=== PATIENT | female | born 1945 ===

== ENCOUNTER 2018-05-13 08:27 | Day surgery (SDC) | payer MEDICARE, OTHER ==
[~2018-05-13] VITALS: Ht 157.5 cm; Wt 55.9 kg
[~2018-05-13 08:27] MED LIST: ALBU90OI61; CITA20; CRUTCH3 USE; CYAN1000I; Flonase 0.05% N16 GM; HYDACE5 PO; LISI5 PO; LOSA25; NAPR500 PO; ROSU10TA PO; VENL75ER PO; Vistaril25 MG
== END 2018-05-13 10:32 | disposition home or self-care (01) ==
LOC: ORSCSDS 08:27
PROVIDERS: Internal Medicine Gastroenterology
PROC: 0DBE8ZX Excision of Large Intestine, Via Natural or Artificial Opening Endoscopic, Diagnostic (ICD-10-PCS; principal; 2018-05-13 09:30)
PROC: 0DBL8ZX Excision of Transverse Colon, Via Natural or Artificial Opening Endoscopic, Diagnostic (ICD-10-PCS; principal; 2018-05-13 09:30)
PROC: 0DBN8ZX Excision of Sigmoid Colon, Via Natural or Artificial Opening Endoscopic, Diagnostic (ICD-10-PCS; principal; 2018-05-13 09:30)
DX: K62.5 Hemorrhage of anus and rectum (principal); K52.831 Collagenous colitis; D12.5 Benign neoplasm of sigmoid colon; K64.4 Residual hemorrhoidal skin tags; K64.8 Other hemorrhoids; K57.30 Diverticulosis of large intestine without perforation or abscess without bleeding; R19.7 Diarrhea, unspecified; R10.84 Generalized abdominal pain; I10 Essential (primary) hypertension; E78.00 Pure hypercholesterolemia, unspecified; F41.9 Anxiety disorder, unspecified; F17.210 Nicotine dependence, cigarettes, uncomplicated; Z79.899 Other long term (current) drug therapy
CPT/HCPCS: 88305; 88313; J0330; J1980; J2405; J7120

== ENCOUNTER 2018-05-21 11:44 | Day surgery (SDC) | payer MEDICARE, OTHER ==
[~2018-05-21] VITALS: Ht 157.5 cm; Wt 56.9 kg
== END 2018-05-21 14:00 | disposition home or self-care (01) ==
LOC: ORSCSDS 11:44
PROVIDERS: Internal Medicine Gastroenterology
PROC: 0DJ08ZZ Inspection of Upper Intestinal Tract, Via Natural or Artificial Opening Endoscopic (ICD-10-PCS; principal; 2018-05-21 13:00)
DX: R11.0 Nausea (principal); R19.7 Diarrhea, unspecified; I10 Essential (primary) hypertension; E78.00 Pure hypercholesterolemia, unspecified; F41.9 Anxiety disorder, unspecified; E78.5 Hyperlipidemia, unspecified; K62.5 Hemorrhage of anus and rectum; F17.210 Nicotine dependence, cigarettes, uncomplicated; Z79.899 Other long term (current) drug therapy

== ENCOUNTER 2018-12-20 14:23 | Emergency (ER) | payer MEDICARE, OTHER ==
[~2018-12-20] VITALS: Ht 157.5 cm; Wt 58.5 kg
[~2018-12-20 14:23] MED LIST changes: +LOSA50 PO
[2018-12-20 15:10] LABS: BASOPHILS ABSOLUTE AUTO 0.07 K/mm3 (0.00-0.23); BASOPHILS PERCENT AUTO 1 % (0-2); EOSINOPHILS ABSOLUTE AUTO 0.16 K/mm3 (0.00-0.68); EOSINOPHILS PERCENT AUTO 2 % (0-6); Hematocrit 46.2 % (33.0-51.0); IMMATURE GRAN ABSOLUTE AUTO 0.04 K/mm3 (0.00-0.10); IMMATURE GRAN PERCENT AUTO 1 % (0-1); LYMPHOCYTES ABSOLUTE AUTO 0.82 K/mm3 (0.84-5.20); LYMPHOCYTES PERCENT AUTO 9 % (21-46); MONOCYTES ABSOLUTE AUTO 0.82 K/mm3 (0.16-1.47); MONOCYTES PERCENT AUTO 9 % (4-13); Mean Corpuscular HGB 36.4 pg (26.0-34.0); Mean Corpuscular HGB Conc 34.6 g/dL (31.5-36.5); Mean Corpuscular Volume 105 fL (80-100); Mean Platelet Volume 10.6 fL (9.1-12.4); NEUTROPHILS PERCENT AUTO 78 % (41-73); Platelet Count 212 K/mm3 (150-400); RDW Coefficient Variation 13.2 % (11.7-14.2); White Blood Cell Count 8.81 K/mm3 (4.00-11.30)
[2018-12-20 15:44] LABS: Alanine Aminotransfer (ALT/SGP 41 U/L (12-78); Albumin, Blood 3.4 g/dL (3.4-5.0); Albumin/Globulin Ratio 0.8 (0.8-1.8); Alk Phos 96 U/L (50-136); Anion Gap 10 mmol/L (6-16); Aspartate Aminotrans (AST/SGOT 100 U/L (12-37); Bilirubin, Total 0.8 mg/dL (0.1-1.0); Blood Urea Nitrogen 10 mg/dL (8-24); Bun/Creatinine Ratio 15.8 (12.0-20.0); CO2, Blood 24 mmol/L (21-32); Chloride, Blood 100 mmol/L (98-108); Creatinine, Blood 0.63 mg/dL (0.40-1.00); Globulin, Blood 4.3 g/dL (2.2-4.0); Glomerular Filtration Rate >60 (60-); Glucose, Blood 137 mg/dL (70-99); Potassium, Blood 4.4 mmol/L (3.5-5.5); Sodium, Blood 134 mmol/L (136-145); Total Protein, Blood 7.7 g/dL (6.4-8.2)
[2018-12-20] MEDS ORDERED: VENL25 PO (17:32)
== END 2018-12-20 18:16 | disposition home or self-care (01) ==
LOC: ER 14:23
PROVIDERS: Physician Assistant
DX: R42 Dizziness and giddiness (principal); R74.0 Nonspecific elevation of levels of transaminase and lactic acid dehydrogenase [LDH]; I10 Essential (primary) hypertension; E78.00 Pure hypercholesterolemia, unspecified; F17.200 Nicotine dependence, unspecified, uncomplicated; Z79.899 Other long term (current) drug therapy
CPT/HCPCS: 36415; 71046; 80053; 84484; 85025; 93005; 93010; 99284-25

== ENCOUNTER 2019-01-10 06:32 | Day surgery (SDC) | payer MEDICARE, OTHER ==
[~2019-01-10] VITALS: Ht 157.5 cm; Wt 58.9 kg
[~2019-01-10 06:32] MED LIST changes: +ALBU90OI61 INH; +CYAN1000I IM; +HYDPAM25 PO; +Norco 5-325 Ta1 EACH PO; +VENL25 PO
--- NOTE | 2019-01-10 07:08 | NUR ---
01/10/19 0708 Peterson Modi 1ST IV ATTEMPT IN RT HAND UNSUCCESSFUL, CHER 2ND IV ATTEMPT IN RAC SUCCESSFUL, CHER
== END 2019-01-10 09:14 | disposition home or self-care (01) ==
LOC: ORSCSDS 06:32
PROVIDERS: Surgery
PROC: 0WB80ZX Excision of Chest Wall, Open Approach, Diagnostic (ICD-10-PCS; principal; 2019-01-10 07:30)
DX: C7B.8 Other secondary neuroendocrine tumors (principal); I10 Essential (primary) hypertension; E78.00 Pure hypercholesterolemia, unspecified; R73.9 Hyperglycemia, unspecified; F17.210 Nicotine dependence, cigarettes, uncomplicated; Z79.899 Other long term (current) drug therapy
CPT/HCPCS: 88305; 88341; 88342; J1100; J2001; J2250; J2370; J2405; J2704; J3010

== ENCOUNTER 2019-01-21 07:25 | Day surgery (SDC) | payer MEDICARE, OTHER ==
[~2019-01-21] VITALS: Ht 154.9 cm; Wt 59.0 kg
--- NOTE | 2019-01-21 08:10 | NUR ---
Ambulatory in Day Surgery History, Chart, Medications and Allergies reviewed before start of procedure.Patient confirms NPO status and agrees with scheduled surgery. Patient States Post-Procedure ride home has been arranged. INSPIRATORY WHEEZE.
--- NOTE | 2019-01-21 08:11 | NUR ---
CARE TURNED OVER TO Bowen ANDREA
--- NOTE | 2019-01-21 08:25 | NUR ---
PATIENT GAVE PERMISION FOR ME TO CARE FOR HER TODAY 01/21/19. History, Chart, Medications and Allergies reviewed before start of procedure.Patient confirms NPO status and agrees with scheduled surgery. Patient reports completing Chlorhexadine shower X2 prior to admission to hospital.Surgical site prepped with 2% Chlorhexidine cloth wipe. AUDIBLE WHEEZES THROUGHOUT INSPIRATORY AND EXPIRATORY.
--- NOTE | 2019-01-21 08:27 | NUR ---
STUDENT RN ASSISTING WITH PREOPERATIVE CARE WHILE GIVING RN BREAK. AGREE WITH HER CHARTING AND CARE
--- NOTE | 2019-01-21 11:52 | NUR ---
"DAY SURGERY RN | DISCHARGE VSS. A/O. Incentive spirometer given to patient. Discharge instructions given to patient. Family is ride home. Sites remain c/d/i. RX given to family. No issues. Tolerating PO fluids and crackers. Denies pain and nausea. Taken to front entrance by volunteer in wheelchair."
== END 2019-01-21 23:09 | disposition home or self-care (01) ==
LOC: ORSCMMR 07:25 → ORD 08:45 → ORSCMMR 08:45
PROVIDERS: Surgery
PROC: B5131ZA Fluoroscopy of Right Jugular Veins using Low Osmolar Contrast, Guidance (ICD-10-PCS; principal; 2019-01-21 08:45)
PROC: 05HM33Z Insertion of Infusion Device into Right Internal Jugular Vein, Percutaneous Approach (ICD-10-PCS; principal; 2019-01-21 08:45)
DX: C38.1 Malignant neoplasm of anterior mediastinum (principal); C34.90 Malignant neoplasm of unspecified part of unspecified bronchus or lung; C79.81 Secondary malignant neoplasm of breast; C79.2 Secondary malignant neoplasm of skin; I10 Essential (primary) hypertension; J44.9 Chronic obstructive pulmonary disease, unspecified; F17.210 Nicotine dependence, cigarettes, uncomplicated; Z79.899 Other long term (current) drug therapy
CPT/HCPCS: 77001; C1788; C1894; J0690; J1100; J1642; J1885; J2250; J2405; J2704; J3010; J7120

== ENCOUNTER 2019-01-27 11:28 | Emergency (ER) | payer MEDICARE, OTHER ==
[~2019-01-27] VITALS: Ht 154.9 cm; Wt 63.5 kg
[2019-01-27 12:20] LABS: BASOPHILS PERCENT AUTO 0 % (0-2); EOSINOPHILS PERCENT AUTO 0 % (0-6); Hematocrit 37.2 % (33.0-51.0); IMMATURE GRAN ABSOLUTE AUTO 0.05 K/mm3 (0.00-0.10); IMMATURE GRAN PERCENT AUTO 1 % (0-1); LYMPHOCYTES ABSOLUTE AUTO 0.64 K/mm3 (0.84-5.20); LYMPHOCYTES PERCENT AUTO 7 % (21-46); MONOCYTES ABSOLUTE AUTO 0.28 K/mm3 (0.16-1.47); MONOCYTES PERCENT AUTO 3 % (4-13); Mean Corpuscular HGB 36.6 pg (26.0-34.0); Mean Corpuscular HGB Conc 34.9 g/dL (31.5-36.5); Mean Corpuscular Volume 105 fL (80-100); NEUTROPHILS PERCENT AUTO 90 % (41-73); Platelet Count 232 K/mm3 (150-400); RDW Coefficient Variation 13.3 % (11.7-14.2); RDW Standard Deviation 51.6 fL (35.1-46.3); Red Blood Cell Count 3.55 M/mm3 (3.80-5.20); White Blood Cell Count 9.77 K/mm3 (4.00-11.30)
[2019-01-27 12:33] LABS: Alanine Aminotransfer (ALT/SGP 27 U/L (12-78); Albumin, Blood 3.3 g/dL (3.4-5.0); Albumin/Globulin Ratio 0.8 (0.8-1.8); Alk Phos 93 U/L (50-136); Anion Gap 6 mmol/L (6-16); Aspartate Aminotrans (AST/SGOT 36 U/L (12-37); Blood Urea Nitrogen 12 mg/dL (8-24); CO2, Blood 31 mmol/L (21-32); Calcium, Blood 9.2 mg/dL (8.5-10.1); Chloride, Blood 97 mmol/L (98-108); Creatinine, Blood 0.52 mg/dL (0.40-1.00); Glomerular Filtration Rate >60 (60-); Glucose, Blood 83 mg/dL (70-99); Potassium, Blood 4.3 mmol/L (3.5-5.5); Sodium, Blood 134 mmol/L (136-145); Total Protein, Blood 7.3 g/dL (6.4-8.2); Troponin I 0.023 ng/mL (0.000-0.040)
[2019-01-27] MEDS ORDERED: ALBU90OI INH (16:32)
== END 2019-01-27 16:53 | disposition home or self-care (01) ==
LOC: ER 11:28
PROVIDERS: Emergency Medicine
DX: S86.812A Strain of other muscle(s) and tendon(s) at lower leg level, left leg, initial encounter (principal); R06.00 Dyspnea, unspecified; X58.XXXA Exposure to other specified factors, initial encounter; Z79.899 Other long term (current) drug therapy; I10 Essential (primary) hypertension; C34.90 Malignant neoplasm of unspecified part of unspecified bronchus or lung; F17.200 Nicotine dependence, unspecified, uncomplicated
CPT/HCPCS: 36415; 71260; 80053; 83880; 84484; 85025; 93005; 93010; 93970; 96374-59; 99285-25; J3010; Q9967

== ENCOUNTER 2019-02-17 11:11 | Inpatient (IN) | payer MEDICARE, OTHER ==
[~2019-02-17] VITALS: Ht 154.9 cm; Wt 63.5 kg
[~2019-02-17 11:11] MED LIST changes: +ALBU90OI INH
[2019-02-17] MEDS ORDERED: VENL75ER PO (11:42)
[2019-02-17 12:01] LABS: BASOPHILS ABSOLUTE AUTO 0.01 K/mm3 (0.00-0.23); BASOPHILS PERCENT AUTO 0 % (0-2); EOSINOPHILS PERCENT AUTO 0 % (0-6); Hematocrit 22.3 % (33.0-51.0); Hemoglobin 7.6 g/dL (11.5-16.0); IMMATURE GRAN PERCENT AUTO 1 % (0-1); LYMPHOCYTES ABSOLUTE AUTO 0.18 K/mm3 (0.84-5.20); LYMPHOCYTES PERCENT AUTO 2 % (21-46); MONOCYTES ABSOLUTE AUTO 0.19 K/mm3 (0.16-1.47); MONOCYTES PERCENT AUTO 2 % (4-13); Mean Corpuscular HGB 37.3 pg (26.0-34.0); Mean Corpuscular HGB Conc 34.1 g/dL (31.5-36.5); Mean Platelet Volume 10.5 fL (9.1-12.4); NEUTROPHILS ABSOLUTE AUTO 7.87 K/mm3 (1.96-9.15); NEUTROPHILS PERCENT AUTO 94 % (41-73); Platelet Count 328 K/mm3 (150-400); RDW Coefficient Variation 14.8 % (11.7-14.2); RDW Standard Deviation 53.9 fL (35.1-46.3); Red Blood Cell Count 2.04 M/mm3 (3.80-5.20); White Blood Cell Count 8.35 K/mm3 (4.00-11.30)
[2019-02-17 12:09] LABS: Mean Corpuscular Volume 109 fL (80-100)
[2019-02-17 12:20] LABS: Alanine Aminotransfer (ALT/SGP 38 U/L (12-78); Albumin, Blood 2.9 g/dL (3.4-5.0); Albumin/Globulin Ratio 0.9 (0.8-1.8); Alk Phos 347 U/L (50-136); Anion Gap 10 mmol/L (6-16); Aspartate Aminotrans (AST/SGOT 47 U/L (12-37); Bilirubin, Total 1.4 mg/dL (0.1-1.0); Blood Urea Nitrogen 12 mg/dL (8-24); Bun/Creatinine Ratio 24.9 (12.0-20.0); CO2, Blood 27 mmol/L (21-32); Calcium, Blood 8.1 mg/dL (8.5-10.1); Chloride, Blood 96 mmol/L (98-108); Creatinine, Blood 0.48 mg/dL (0.40-1.00); Globulin, Blood 3.3 g/dL (2.2-4.0); Glomerular Filtration Rate >60 (60-); Glucose, Blood 172 mg/dL (70-99); Potassium, Blood 3.6 mmol/L (3.5-5.5); Sodium, Blood 133 mmol/L (136-145); Total Protein, Blood 6.2 g/dL (6.4-8.2); Troponin I 0.124 ng/mL (0.000-0.040)
[2019-02-17] MEDS ORDERED: CLON.1 PO (15:09)
[2019-02-17] MEDS ORDERED: ONDA8 PO (15:11)
[2019-02-17] MEDS ORDERED: METO10 PO (15:11)
[2019-02-17 18:19] LABS: Percent Saturation 105.1 % (15.0-50.0)
[2019-02-17 20:16] LABS: Troponin I 0.085 ng/mL (0.000-0.040)
[2019-02-17 20:18] LABS: Thyroid Stimulating Hormone 1.57 uIU/mL (0.360-4.800)
[2019-02-17 20:59] LABS: Source, Urine Catheter
[2019-02-17 21:00] LABS: Bilirubin, Urine Neg (Neg); Blood, Urine 1+ (Neg); Glucose Qualitative, Urine 2+ (Neg); Ketones, Urine Neg (Neg); Leukocyte Esterase, Urine Neg (Neg); Nitrite, Urine Neg (Neg); Protein, Urine 3+ (Neg); Urobilinogen, Urine NORM (Normal)
[2019-02-17 21:05] LABS: Appearance, Urine Hazy (Clear); Color, Urine Yellow (P-Yellow)
[2019-02-17 21:06] LABS: Red Blood Cells, Urine 0-2 /hpf (0-2); Squamous Epithelial Cells Mod /hpf (Few)
[2019-02-17 21:07] LABS: Amorphous Light (0-Heavy); Bacteria Mod /hpf; Granular Casts 0-2 /lpf (0)
--- NOTE | 2019-02-17 23:59 | NUR ---
ADMIT NOTED: PT BROUGHT TO ICU ROOM 14 VIA GURNEY FROM THE ER. PT ARRIVED A+O, VSS, ON OXYGEN 6L VIA N/C SATS 100%. PT LS AT THAT TIME WITH INS AND EXP WHEEZE TO LEFT UPPER, MIDDLE, AND LOWER LOBE. RIGHT LS SLIGHTLY COARSE AND DIMINISHED. PT DENIED SOB, CP, OR ANY OTHER DISCOMFORTS. PT WITH INFUSION OF FIRST UNIT OF PRBC WHICH WAS STARTED IN THE ER. PT STATED THAT BILATERAL LOWER EXT EDEMA BEGAN APPRX TWO WEEKS AGO AND WORSENED. PT WITH MEDIPORT TO RIGHT CHEST AND STATED THAT DR. VARELA DID NOT WANT IT ACCESSED FOR ANYTHING OTHER THAN CHEMO. PT WITH 20g TO R AC AND 20g TO L FA. PT REQUESTED THAT HER [id number] TO BEDSIDE. PT'S [id number] NATY BROUGHT INTO ROOM AND WAS LATER JOINED BY OTHER FAMILY MEMBERS. PT VISITED AND THEN HAD FALLEN ASLEEP WITH SATS 100%. O2 TURNED OFF THIS NOC AT 2355. WITH PT RESTING QUIETLY WITH NO WORK OF BREATHING. WILL CONTINUE TO MONITOR. PT CURRENTLY RECEIVING SECOND UNIT OF PRBC. VSS. PT SKIN PWD. CALL LIGHT WITHIN REACH. NO FAMILY NOTED IN ROOM AT THIS TIME.
--- NOTE | 2019-02-18 01:25 | NUR ---
O2 2L N/C: AT APPRX. 0020. PT SATS 88% WHILE OFF O2. PT WAS ASLEEP, SATS 88%. O2 PLACED ON 2L VIA N/C.
--- NOTE | 2019-02-18 01:26 | NUR ---
PT AWAKE. C/O RESTLESS LEG. PT REQUESTED NORCO AND JELLO. PT DENIED SOB OR ANY OTHER DISCOMFORTS. PT STATED WHILE POINTING TO HER CHEST, "IT FEELS PET GROOMER". CALL LIGHT WITHIN REACH. VSS.
--- NOTE | 2019-02-18 04:30 | NUR ---
PT AWAKE AFTER LAB DRAW. NOW HAS FAMILY AT BEDSIDE. VSS. PT WITH COMPLAINTS AND NO REQUESTS. CALL LIGHT WITHIN REACH.
[2019-02-18 04:40] LABS: BASOPHILS PERCENT AUTO 0 % (0-2); EOSINOPHILS ABSOLUTE AUTO 0.01 K/mm3 (0.00-0.68); EOSINOPHILS PERCENT AUTO 0 % (0-6); Hematocrit 30.2 % (33.0-51.0); Hemoglobin 10.5 g/dL (11.5-16.0); Mean Corpuscular HGB 33.7 pg (26.0-34.0); Mean Corpuscular HGB Conc 34.8 g/dL (31.5-36.5); Mean Platelet Volume 10.4 fL (9.1-12.4); Platelet Count 255 K/mm3 (150-400); RDW Coefficient Variation 18.7 % (11.7-14.2); RDW Standard Deviation 63.2 fL (35.1-46.3); Red Blood Cell Count 3.12 M/mm3 (3.80-5.20); White Blood Cell Count 6.94 K/mm3 (4.00-11.30)
[2019-02-18 04:41] LABS: IMMATURE GRAN ABSOLUTE AUTO 0.07 K/mm3 (0.00-0.10); IMMATURE GRAN PERCENT AUTO 1 % (0-1); LYMPHOCYTES ABSOLUTE AUTO 0.08 K/mm3 (0.84-5.20); LYMPHOCYTES PERCENT AUTO 1 % (21-46); MONOCYTES ABSOLUTE AUTO 0.04 K/mm3 (0.16-1.47); MONOCYTES PERCENT AUTO 1 % (4-13); Mean Corpuscular Volume 97 fL (80-100); NEUTROPHILS ABSOLUTE AUTO 6.74 K/mm3 (1.96-9.15); NEUTROPHILS PERCENT AUTO 97 % (41-73)
[2019-02-18 05:10] LABS: Alanine Aminotransfer (ALT/SGP 41 U/L (12-78); Albumin, Blood 2.9 g/dL (3.4-5.0); Albumin/Globulin Ratio 0.9 (0.8-1.8); Alk Phos 343 U/L (50-136); Anion Gap 7 mmol/L (6-16); Aspartate Aminotrans (AST/SGOT 47 U/L (12-37); Bilirubin, Total 2.6 mg/dL (0.1-1.0); Blood Urea Nitrogen 15 mg/dL (8-24); Bun/Creatinine Ratio 30.9 (12.0-20.0); CO2, Blood 31 mmol/L (21-32); Calcium, Blood 8.4 mg/dL (8.5-10.1); Chloride, Blood 95 mmol/L (98-108); Creatinine, Blood 0.49 mg/dL (0.40-1.00); Globulin, Blood 3.2 g/dL (2.2-4.0); Glomerular Filtration Rate >60 (60-); Glucose, Blood 252 mg/dL (70-99); Magnesium, Blood 1.8 mg/dL (1.6-2.4); Potassium, Blood 3.6 mmol/L (3.5-5.5); Sodium, Blood 133 mmol/L (136-145); Total Protein, Blood 6.1 g/dL (6.4-8.2)
--- NOTE | 2019-02-18 07:30 | NUR ---
ASSUMED CARE OF PATIENT; SEE ASSESSMENT CHARTING FOR DETAILS. PATIENT AWAKE, ALERT AND ORIENTED; DENIES ACUTE DISCOMFORT. RESP. STATUS REMAINS WITH COARSE TO WHEEZY UPPER AIRWAYS AND DIMINISHED BASES; OXYGEN AT 2L/MIN VIA NC. MONITOR AND VSS STABLE. VAZQUEZ TO GRAVITY AND DRAINING MOD. AMOUNTS OF MARILUZ COLORED URINE. 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 HERE AND DOING PORTABLE U/S OF LIVER.
--- NOTE | 2019-02-18 07:50 | NUR ---
RESP. TX. HERE; UDN GIVEN; LUNGS WITH INCREASED ANTERIOR WHEEZES.
--- NOTE | 2019-02-18 08:00 | NUR ---
LIMITED ECHOCARDIOGRAM DONE, AT THIS TIME; HAD A COMPLETE ECHO 2 WEEKS AGO.
--- NOTE | 2019-02-18 08:20 | NUR ---
DR. DEL TORO HERE; DISCUSSED OVERALL STATUS AND POC WITH PATIENT AND DNL. PLANS TO ORDER A CT OF CHEST TO SEE HOW CHEMOTHERAPY IS WORKING AGAINST TUMORS.
--- NOTE | 2019-02-18 08:35 | NUR ---
DR. ALVES HERE; SEE ORDERS.
--- NOTE | 2019-02-18 09:10 | NUR ---
PARTIAL ECHOCARDIOGRAM COMPLETED
--- NOTE | 2019-02-18 14:00 | NUR ---
RN EMPTIED 2,150 ML OF ORANGISH/MARILUZ URINE FROM VAZQUEZ CATH. DRAINAGE BAG.
--- NOTE | 2019-02-18 16:30 | NUR ---
TO CT SCAN VIA BED WITH OXYGEN AT 2L/MIN AND RESEARCH AND DEVELOPMENT DIRECTOR/BIOX MONITOR RUNNING. SCAN PERFORMED WITHOUT INCIDENT; RETURNED TO ROOM AT 1655.
--- NOTE | 2019-02-18 18:30 | NUR ---
SUMMARY: NO ACUTE CHANGES; VSS AND MONITOR ST WITH RATE LOW 100'S TO 120'S; AFEBRILE. BP STABLE TO MODERATELY ELEVATED; DENIES C/O H.A. MEDICATED, X 1, FOR C/O LOWER BACK PAIN OF 5/10; DRIFTED OFF TO SLEEP SHORTLY AFTER MED GIVEN. DIURESED ANOTHER 1100ML SINCE 1400; RECEIVED ANOTHER 60MG OF LASIX IV AT 1800. FAMILY AND FRIENDS IN/OUT; VERY SUPPORTIVE. IF H&H MAINTAINS STABLE TOMORROW THERE IS A CHANCE PATIENT MAY BE DISCHARGED TO HOME; IF H&H WITH SIGNIFICANT DROP DR. DEL TORO IS PLANNING TO ORDER GI CONSULT. WILL REPORT TO ONCOMING RN.
--- NOTE | 2019-02-18 19:00 | NUR ---
ASSUMED CARE ASSUMED CARE OF PATIENT. AWAKE AND ALERT. WATCHING TV. ORIENTED X 3. REPOSITIONS SELF IN BED. DENIES C/O PAIN AT THIS TIME. PT C/O OF GENERAL WEAKNESS. MONITOR SHOWS ST, RATE 100-110s. SBP 160. REMAINS ON 2L NC. RESPIRATIONS EVEN AND UNLABORED. DENIES C/O SOB/DYSPNEA AT THIS TIME. DENIES NAUSEA. TOLERATING DIET BUT DOES HAVE DECREASED APPETITE. VAZQUEZ PATENT AND DRAINING TO GRAVITY. PAS TO BLE. SEE SHIFT ASSESSMENT FOR FULL ASSESSMENT.
--- NOTE | 2019-02-19 02:06 | NUR ---
HYPERTENSION BP 165/91- MEDICATED WITH CLONIDINE 0.1MG PO AT THIS TIME TO KEEP SBP <160. PT DENIES C/O PAIN AT THIS TIME. C/O GENERAL DISCOMFORT- PT REPOSITIONED FOR COMFORT. O2 @ 1L NC. RESPIRATIONS EVEN AND UNLABORED.
[2019-02-19 05:01] LABS: Hematocrit 29.5 % (33.0-51.0); Hemoglobin 10.5 g/dL (11.5-16.0); Mean Corpuscular HGB 34.9 pg (26.0-34.0); Mean Corpuscular HGB Conc 35.6 g/dL (31.5-36.5); Mean Corpuscular Volume 98 fL (80-100); Mean Platelet Volume 10.7 fL (9.1-12.4); Platelet Count 232 K/mm3 (150-400); RDW Standard Deviation 61.1 fL (35.1-46.3); Red Blood Cell Count 3.01 M/mm3 (3.80-5.20); White Blood Cell Count 18.51 K/mm3 (4.00-11.30)
[2019-02-19 05:41] LABS: BAND PERCENT MAN 2 % (0-8); BASOPHILS PERCENT MAN 0 % (0-2); EOSINOPHILS PERCENT MAN 0 % (0-6); METAMYELOCYTE ABSOLUTE MAN 0.18 K/mm3 (0.00-0.00); METAMYELOCYTE PERCENT MAN 1 % (0-0); MONOCYTES PERCENT MAN 0 % (4-13); MYELOCYTE ABSOLUTE MAN 0.18 K/mm3 (0.00-0.00); MYELOCYTE PERCENT MAN 1 % (0-0); NEUTROPHILS ABSOLUTE MAN 18.13 K/mm3 (1.96-9.15); SEG NEUTROPHILS PERCENT MAN 96 % (41-73); TOTAL CELLS COUNTED 100
[2019-02-19 05:53] LABS: Alanine Aminotransfer (ALT/SGP 38 U/L (12-78); Albumin, Blood 2.9 g/dL (3.4-5.0); Albumin/Globulin Ratio 0.9 (0.8-1.8); Alk Phos 327 U/L (50-136); Anion Gap 6 mmol/L (6-16); Aspartate Aminotrans (AST/SGOT 29 U/L (12-37); Bilirubin, Direct 0.8 mg/dL (0.0-0.3); Bilirubin, Indirect 0.7 mg/dL (0.1-0.7); Bilirubin, Total 1.5 mg/dL (0.1-1.0); Blood Urea Nitrogen 20 mg/dL (8-24); Bun/Creatinine Ratio 36.6 (12.0-20.0); CO2, Blood 38 mmol/L (21-32); Calcium, Blood 8.6 mg/dL (8.5-10.1); Chloride, Blood 91 mmol/L (98-108); Creatinine, Blood 0.55 mg/dL (0.40-1.00); Globulin, Blood 3.3 g/dL (2.2-4.0); Glomerular Filtration Rate >60 (60-); Glucose, Blood 239 mg/dL (70-99); Phosphorus, Blood 3.4 mg/dL (2.5-4.9); Potassium, Blood 3.3 mmol/L (3.5-5.5); Sodium, Blood 135 mmol/L (136-145); Total Protein, Blood 6.2 g/dL (6.4-8.2)
--- NOTE | 2019-02-19 06:32 | NUR ---
SHIFT SUMMARY NO ACUTE CHANGES. SLEPT INTERMITTENTLY WHEN UNDISTURBED. CONTINUES TO REPOSITION SELF IN BED FOR COMFORT. MONITOR SHOWS NSR-ST T/O SHIFT, RATE 90-110s. AFEBRILE. SBP 140-160s. REMAINS ON 1L NC. DENIES C/O SOB OR DYSPNEA. MEDICATED WITH NORCO 5/325MG PO X 1 FOR C/O 6/10 BACK PAIN. VAZQUEZ PATENT AND DRAINING DARK YELLOW URINE. WILL REPORT TO DAY SHIFT RN WHEN AVAILABLE.
--- NOTE | 2019-02-19 07:30 | NUR ---
ASSUMED CARE OF PATIENT; SEE ASSESSMENT CHARTING FOR DETAILS. PATIENT SLEEPING BUT ROUSED TO SOFT, VERBAL STIMULI. ORIENTED X3 AND COOPERATIVE. DENIES UNDUE DISCOMFORT AT THIS TIME. CONT. WITH 2-3+ BILAT. LE EDEMA; LESS SEVERE FROM YESTERDAY; REMAINS PITTING. SBP MODERATELY ELEVATED (150'S TO 160'S); HR 90'S TO 120/MIN. LOW GRADE FEVER OF 99.1; WBC UP TO 18,000 THIS AM; CONT. TO RECEIVE GRANIX SUBQ ORDERED BY BY DR. DEL TORO; STARTED YESTERDAY AND IS ORDERED DAILY. VAZQUEZ TO GRAVITY AND DRAINING MOD. AMOUNTS OF STRAW COLORED URINE. STATES SHE IS PASSING GAS; FEELS LIKE SHE WILL HAVE A STOOL TODAY.
--- NOTE | 2019-02-19 08:05 | NUR ---
RN T/C DR. HAM (CARDIOLOGY) FOR CONSULT; HE WILL CHECK OVER PATIENTS' CHART AND ECHOCARDIOGRAM AND THEN EVAL. PATIENT.
--- NOTE | 2019-02-19 08:25 | NUR ---
DR. HAM ARRIVED; SPOKE WITH PATIENT AND DISCUSSED CARDIAC STATUS; NO ACUTE CARDIAC ISSUES; FEELS ANEMIA CAUSED CHF EPISODE AND PATIENT MAY REQUIRE SMALL DOSES OF DIURETIC WHEN GOES HOME; ALSO STARTED NORVASC 2.5MG FOR MODERATE HTN.
--- NOTE | 2019-02-19 11:05 | NUR ---
REPORT TO CORA CERDA RN; PATIENT TO TRANSFER TO PCU, ROOM 2.
--- NOTE | 2019-02-19 11:25 | NUR ---
TRANSFERRED TO PCU, VIA BED; BELONGINGS, CHART AND MEDS. WITH PATIENT.
--- NOTE | 2019-02-19 11:42 | NUR ---
pt arrived to pcu via bed from icu, report from Nadia ANDREA, pt settled into bed, a/ox3, pleasant and cooperative with care, follows commands well, denies pain at this time, states she is fine, lungs are clear in upper haddad, dim in bases, occ wheeze, is currently on 1 liter of 02 via n/c, resp even and unlabored, no cough noted, hrr, tele in place running sr to st per monitor, see strip, no 2+ edema noted to b/l le, ppp+1, cap refill <3sec, vs stable, afebrile, iv site is clear and patent, btx4, abd flat soft nontender, voids via farias cath draining clear yellow urine, skin c/w/d, robyn sneed, call light in reach.
--- NOTE | 2019-02-19 14:09 | NUR ---
pt resting in bed, doing ok, no needs at this time. call light in reach.
--- NOTE | 2019-02-19 18:23 | NUR ---
pt resting in bed, watching tv, states she is doing pretty well, no complaints or acute changes this shift, call light in reach.
[2019-02-20 04:19] LABS: Hematocrit 32.4 % (33.0-51.0); Mean Corpuscular HGB 33.7 pg (26.0-34.0); Mean Corpuscular Volume 99 fL (80-100); Mean Platelet Volume 10.9 fL (9.1-12.4); Platelet Count 219 K/mm3 (150-400); RDW Coefficient Variation 16.8 % (11.7-14.2); RDW Standard Deviation 58.4 fL (35.1-46.3); Red Blood Cell Count 3.26 M/mm3 (3.80-5.20); White Blood Cell Count 14.83 K/mm3 (4.00-11.30)
--- NOTE | 2019-02-20 04:33 | NUR ---
SHIFT SUMMARY PT A&O X4. HTN, OTHERWISE VSS. LUNG SOUNDS CLEAR, DIM IN BASES. SPO2 > 92% ON 1L NC. MONITOR SHOWS NSR/ST, HR 90-110. PT C/O LEG PAIN TX'D X1 THIS SHIFT THAT PT ATTRIBUTES TO RESTLESS LEG. R LEG/FOOT EDEMATOUS, ELEVATED ON PILLOW T/O SHIFT. VAZQUEZ CATH PATENT AND DRAINING CLEAR YELLOW URINE. PT ABLE TO REPOSITION SELF IN BED, BUT STAFF ASSISTED W/ REPOSITIONING W/ PILLOWS FOR COMFORT T/O SHIFT. WILL CONTINUE TO MONITOR AND PROVIDE CARE UNTIL REPORT OFF TO DAY SHIFT RN.
[2019-02-20 04:39] LABS: Anion Gap 6 mmol/L (6-16); Blood Urea Nitrogen 25 mg/dL (8-24); Bun/Creatinine Ratio 51.3 (12.0-20.0); CO2, Blood 38 mmol/L (21-32); Calcium, Blood 8.8 mg/dL (8.5-10.1); Chloride, Blood 89 mmol/L (98-108); Creatinine, Blood 0.49 mg/dL (0.40-1.00); Glomerular Filtration Rate >60 (60-); Glucose, Blood 184 mg/dL (70-99); Potassium, Blood 3.6 mmol/L (3.5-5.5); Sodium, Blood 133 mmol/L (136-145)
[2019-02-20 05:24] LABS: BAND PERCENT MAN 2 % (0-8); BASOPHILS PERCENT MAN 0 % (0-2); EOSINOPHILS PERCENT MAN 0 % (0-6); LYMPHOCYTES ABSOLUTE MAN 0.14 K/mm3 (0.84-5.20); LYMPHOCYTES PERCENT MAN 1 % (21-46); METAMYELOCYTE ABSOLUTE MAN 0.14 K/mm3 (0.00-0.00); METAMYELOCYTE PERCENT MAN 1 % (0-0); MONOCYTES ABSOLUTE MAN 0.29 K/mm3 (0.16-1.47); MONOCYTES PERCENT MAN 2 % (4-13); NEUTROPHILS ABSOLUTE MAN 14.23 K/mm3 (1.96-9.15); SEG NEUTROPHILS PERCENT MAN 94 % (41-73); TOTAL CELLS COUNTED 100
--- NOTE | 2019-02-20 09:02 | NUR ---
pt laying in bed with eyes closed, wakes easily. a/ox3, pleasant and cooperative with care, follows commands well, states she did not sleep well, but is feeling pretty good this am, denies pain or sob, RT turned 02 off as she was on 1 liter, found her sats at 79% at rest, replaced 02 via n/c, after about 3 min she came up to 92%. no cough noted, resp even and unalbored, hrr, tele in place running st per monitor, see strip, edema noted to rle, soft nonpitting, no edema to left le, piv x2 to r and l ac's sites are clear and patent, btx4, abd round soft nonteder, voids via farias cath draining clear yellow urine, skin c/w/d, robyn sneed, call light in reach.
--- NOTE | 2019-02-20 12:27 | NUR ---
Kitty. WORKED WITH PT. SHE IS BACK IN BED AND DOING WELL, VS STABLE, FAMILY IN ROOM. NO COMPLAINTS OR NEEDS AT THIS TIME. CALL LIGHT IN REACH.
--- NOTE | 2019-02-20 14:49 | NUR ---
Received full report from Wilfrid Mathew RN. patient awake with family at bedside.
[2019-02-21 03:51] LABS: Hematocrit 35.1 % (33.0-51.0); Hemoglobin 11.9 g/dL (11.5-16.0); Mean Corpuscular HGB 34.4 pg (26.0-34.0); Mean Corpuscular HGB Conc 33.9 g/dL (31.5-36.5); Mean Corpuscular Volume 101 fL (80-100); Mean Platelet Volume 11.1 fL (9.1-12.4); Platelet Count 167 K/mm3 (150-400); RDW Coefficient Variation 16.3 % (11.7-14.2); RDW Standard Deviation 57.5 fL (35.1-46.3); Red Blood Cell Count 3.46 M/mm3 (3.80-5.20); White Blood Cell Count 9.92 K/mm3 (4.00-11.30)
[2019-02-21 04:09] LABS: Albumin, Blood 3.2 g/dL (3.4-5.0); Anion Gap 6 mmol/L (6-16); Blood Urea Nitrogen 24 mg/dL (8-24); Bun/Creatinine Ratio 45.5 (12.0-20.0); CO2, Blood 37 mmol/L (21-32); Calcium, Blood 9.1 mg/dL (8.5-10.1); Chloride, Blood 90 mmol/L (98-108); Creatinine, Blood 0.53 mg/dL (0.40-1.00); Glomerular Filtration Rate >60 (60-); Glucose, Blood 147 mg/dL (70-99); Phosphorus, Blood 4.9 mg/dL (2.5-4.9); Sodium, Blood 133 mmol/L (136-145)
[2019-02-21 04:39] LABS: BAND PERCENT MAN 10 % (0-8); BASOPHILS PERCENT MAN 0 % (0-2); EOSINOPHILS PERCENT MAN 0 % (0-6); LYMPHOCYTES ABSOLUTE MAN 0.29 K/mm3 (0.84-5.20); LYMPHOCYTES PERCENT MAN 3 % (21-46); MONOCYTES ABSOLUTE MAN 0.69 K/mm3 (0.16-1.47); MONOCYTES PERCENT MAN 7 % (4-13); NEUTROPHILS ABSOLUTE MAN 8.92 K/mm3 (1.96-9.15); SEG NEUTROPHILS PERCENT MAN 80 % (41-73); TOTAL CELLS COUNTED 100
--- NOTE | 2019-02-21 04:41 | NUR ---
SHIFT SUMMARY PT A&O X4, CALM AND COOPERATIVE. LUNG SOUNDS CLEAR, DIM IN BASES. SPO2 > 92% ON 1L NC. MONITOR SHOWS NSR/ST, HR 90-110. VSS. PT ATTEMPT FOR BM THIS SHIFT W/ NO RESULT. BOWEL CARE PROVIDED PER EMAR. VAZQUEZ CATH PATENT AND DRAINING CLEAR YELLOW URINE. PT SBA W/ FWW OOB. NO EVENTS OVERNIGHT. WILL CONTINUE TO MONITOR AND PROVIDE CARE UNTIL REPORT OFF TO DAY SHIFT RN.
--- NOTE | 2019-02-21 10:39 | NUR ---
AM NOTE PT RESTING. ST. RATE 100-115 BPM. BP ELEVATED PRIOR TO AM MEDICATIONS. PT EXPRESSED THAT SHE IS FEELING MARGINALLY BETTER. APPETITE IMPROVING. TALKED WITH PHARMACY ABOUT DAILY GRANIX INJECTIONS. THEY ASKED THIS NURSE TO CLARIFY WHEN DR DEL TORO CAME TO SEE PT. NO BLACK/MAROON STOOLS. PT DENIED ABD PAIN OR BLOATING. UP SBA. VAZQUEZ PATENT. GOOD OUTPT FROM LASIX. EDEMA IMPROVING SLOWLY PER PT. CONTINUE POT.
--- NOTE | 2019-02-21 19:35 | NUR ---
ASSUMED CARE PT RESTING IN ROOM COMFORTABLY W/ FAMILY AT BEDSIDE. PER DAY SHIFT RN PT HAS HAD MANY VISITORS TODAY AND BEEN VERY ACTIVE W/ FAMILY AND FRIENDS. PT IS EXHAUSTED AND WANTS TO GO TO SLEEP EARLY. RESP EVEN UNLABORED ON 1L NC W/ SATS >92%. DENIES PAIN AT THIS TIME. REPORTS TAKES PAIN MED BEFORE SLEEP, WILL MEDICATE PER EMAR PRN. PT ON CHEMO PRACAUTIONS. VAZQUEZ CATH IN PLACE DRAINING TO GRAVITY CLEAR YELLOW URINE. CALL LIGHT IN REACH.
--- NOTE | 2019-02-21 20:00 | NUR ---
VAZQUEZ CATH DISCUSSED W/ PT PROVIDER ORDER TO REMOVE VAZQUEZ CATH AT THIS TIME. PT REPORTS IS SO EXHAUTSED FROM DAY AND DOES NOT THINK SHE WILL BE ABLE TO TOLERATE GETTING UP TO THE BATHROOM MULTIPLE TIMES T/O NIGHT. PT REQUESTING VAZQUEZ TO REMAIN IN FOR THE NIGHT AND REMOVE IN THE AM. PT EDUCATED THIS RN WOULD BE BACK BETWEEN [id number] TO DISCUSS AGAIN. WILL CURRENTLY ALLOW PT TO KEEP VAZQUEZ IN PLACE FOR PT COMFORT AND PER REQUEST.
[2019-02-22 04:06] LABS: BASOPHILS ABSOLUTE AUTO 0.07 K/mm3 (0.00-0.23); BASOPHILS PERCENT AUTO 1 % (0-2); Hematocrit 36.3 % (33.0-51.0); Hemoglobin 12.3 g/dL (11.5-16.0); LYMPHOCYTES PERCENT AUTO 14 % (21-46); MONOCYTES ABSOLUTE AUTO 1.14 K/mm3 (0.16-1.47); MONOCYTES PERCENT AUTO 20 % (4-13); Mean Corpuscular HGB 34.4 pg (26.0-34.0); Mean Corpuscular HGB Conc 33.9 g/dL (31.5-36.5); Mean Corpuscular Volume 101 fL (80-100); Mean Platelet Volume 11.7 fL (9.1-12.4); Platelet Count 128 K/mm3 (150-400); RDW Coefficient Variation 15.9 % (11.7-14.2); RDW Standard Deviation 56.1 fL (35.1-46.3); Red Blood Cell Count 3.58 M/mm3 (3.80-5.20); White Blood Cell Count 5.65 K/mm3 (4.00-11.30)
[2019-02-22 04:10] LABS: EOSINOPHILS ABSOLUTE AUTO 0.01 K/mm3 (0.00-0.68); EOSINOPHILS PERCENT AUTO 0 % (0-6); IMMATURE GRAN ABSOLUTE AUTO 0.03 K/mm3 (0.00-0.10); IMMATURE GRAN PERCENT AUTO 1 % (0-1); NEUTROPHILS PERCENT AUTO 64 % (41-73)
[2019-02-22 04:23] LABS: Albumin, Blood 3.2 g/dL (3.4-5.0); Anion Gap 7 mmol/L (6-16); Blood Urea Nitrogen 22 mg/dL (8-24); Bun/Creatinine Ratio 43.7 (12.0-20.0); CO2, Blood 34 mmol/L (21-32); Calcium, Blood 9.2 mg/dL (8.5-10.1); Chloride, Blood 95 mmol/L (98-108); Glomerular Filtration Rate >60 (60-); Glucose, Blood 126 mg/dL (70-99); Phosphorus, Blood 4.6 mg/dL (2.5-4.9); Potassium, Blood 3.9 mmol/L (3.5-5.5); Sodium, Blood 136 mmol/L (136-145)
--- NOTE | 2019-02-22 05:27 | NUR ---
SHIFT SUMMARY PT SLEEPING IN ROOM COMFORTABLY AT THIS TIME. NO ACUTE CHANGES IN STATUS. PT SLEPT VERY WELL T/O NIGHT REPORTED WAS EXHAUSTED FROM MANY VISITORS DURING DAY. RESP EVEN UNLBAORED ON 1L NC W/ SATS >92%. REPORTS PAIN UNDER CONTORL AT THIS TIME. CALL LIGHT IS IN REACH. PT CALLS APPROPRIATELY FOR NEEDS.
[2019-02-22] MEDS ORDERED: AMLO5 PO (12:01)
[2019-02-22] MEDS ORDERED: ASPI81CH PO (12:02)
[2019-02-22] MEDS ORDERED: ATOR40TA PO (12:03)
[2019-02-22] MEDS ORDERED: FURO80 PO (12:04)
[2019-02-22] MEDS ORDERED: ONE DAILY ESS400 MCG PO (12:05)
[2019-02-22] MEDS ORDERED: DULERA 100 MCG/13 GM INH (12:06)
[2019-02-22] MEDS ORDERED: K-Dur 20 meq T20 MEQ PO (12:07)
[2019-02-22] MEDS ORDERED: Omeprazole20 M1 PO (12:08)
[2019-02-22] MEDS ORDERED: PRED10 PO (12:09)
[2019-02-22] MEDS ORDERED: B-1100 MG PO (12:10)
--- NOTE | 2019-02-22 13:13 | NUR ---
PT ALERT AND ORIENTED. VS STABLE. DR. ALVES IN THIS AM TO PROVIDE DISCHARGE ORDERS. PT EDUCATED ON DISCHARGE INSTRUCTIONS AND NEW MEDICATIONS PROVIDED. FAMILY AT BEDSIDE FOR DISCHARGE INSTRUCTIONS. IV REMOVED AND INTACT. PT TO BE TAKEN OUT BY WHEELCHAIR.
== END 2019-02-22 13:22 | disposition home or self-care (01) | DRG 377 ==
LOC: ER 11:11 → MEDS 15:13 → ER 15:13 → ICUW 15:21 → PCU 15:21 → ICUW 19:32 → PCU 02-19 11:25
PROVIDERS: Emergency Medicine; ADMIT Internal Medicine
PROC: 30233N1 Transfusion of Nonautologous Red Blood Cells into Peripheral Vein, Percutaneous Approach (ICD-10-PCS; principal; 2019-02-18)
DX: K92.2 Gastrointestinal hemorrhage, unspecified (principal); J96.01 Acute respiratory failure with hypoxia; I50.31 Acute diastolic (congestive) heart failure; I21.A1 Myocardial infarction type 2; J44.1 Chronic obstructive pulmonary disease with (acute) exacerbation; C7A.1 Malignant poorly differentiated neuroendocrine tumors; C34.90 Malignant neoplasm of unspecified part of unspecified bronchus or lung; E87.1 Hypo-osmolality and hyponatremia; E22.2 Syndrome of inappropriate secretion of antidiuretic hormone; D63.0 Anemia in neoplastic disease; I11.0 Hypertensive heart disease with heart failure; R74.0 Nonspecific elevation of levels of transaminase and lactic acid dehydrogenase [LDH]; D50.9 Iron deficiency anemia, unspecified; F10.20 Alcohol dependence, uncomplicated; Z87.891 Personal history of nicotine dependence; G25.81 Restless legs syndrome; I34.0 Nonrheumatic mitral (valve) insufficiency; G89.4 Chronic pain syndrome
CPT/HCPCS: 36415; 36430; 51702; 71045; 71260; 76705; 80053; 80069; 81001; 82248; 82272; 82607; 82728; 82746; 83540; 83550; 83735; 83880; 84100; 84443; 84484; 85025; 86850; 86900; 86901; 86923; 87077; 87086; 87186; 93005; 93010; 93308; 93321; 94640; 94660; 94760; 94761; 94762; 96374-59; 96375-59; 97110; 97162; 97166; 97530; 99285-25; A9270-GY; J1447; J1940; J2920; J2930; J7030; J7512; P9016; Q9967

== ENCOUNTER 2019-03-04 07:03 | Day surgery (SDC) | payer MEDICARE, OTHER ==
[~2019-03-04] VITALS: Ht 154.9 cm; Wt 54.6 kg
[~2019-03-04 07:03] MED LIST changes: +AMLO5 PO; +ASPI81CH PO; +ATOR40TA PO; +B-1100 MG PO; +CLON.1 PO; +DULERA 100 MCG/13 GM INH; +FURO80 PO; +K-Dur 20 meq T20 MEQ PO; +METO10 PO; +ONDA8 PO; +ONE DAILY ESS400 MCG PO; +Omeprazole20 M1 PO; +PRED10 PO
--- NOTE | 2019-03-04 07:32 | NUR ---
INTO [facility] ADMISSION STARTED TO UNIT. History, Chart, Medications and Allergies reviewed before start of procedure.Patient States Post-Procedure ride home has been arranged.
--- NOTE | 2019-03-04 08:26 | NUR ---
03/04/19 0826 Miguel Angel Mayer Bite Block Placed3-LEAD EKG REVIEWED WITH PHYSICIAN PRIOR TO START OF PROCEDURE.Patient to ENDO 1History, Chart, Medications and Allergies reviewed before start of procedure.MONITOR INTACT WITH CONTINUOUS PULSE OXIMETRY AND INTERMITTENT BP.O2 VIA N/C INTACT THROUGHOUT SEDATION/PROCEDURE.See Anesthesia record
--- NOTE | 2019-03-04 10:01 | NUR ---
Discharge instructions reviewed with patient. Patient verbalizes understanding. Copy given to patient to take home. PT VERBALIZED READY TO GO HOME AND TAKE A NAP. VSS, PT TOLERATED WATER WELL. Discharged via wheelchair to private car for ride home.
[2019-07-14] MEDS ORDERED: FLUT1DIS5 INH (11:09)
[2019-07-14] MEDS ORDERED: NITR.4SL SL (11:09)
[2019-07-14] MEDS ORDERED: ALBU90OI INH (11:09)
[2019-07-14] MEDS ORDERED: METO25ER PO (11:10)
[2019-07-14] MEDS ORDERED: LOSA50 PO (11:10)
[2019-07-14] MEDS ORDERED: CYAN1000I IM (11:11)
[2019-07-14] MEDS ORDERED: Ropinirole HCl0.5 MG PO (11:12)
== END 2019-03-04 22:48 | disposition home or self-care (01) ==
LOC: ORSCMMR 07:03 → ORD 08:30 → ORSCMMR 08:30
PROVIDERS: Internal Medicine Gastroenterology
PROC: 0DJ08ZZ Inspection of Upper Intestinal Tract, Via Natural or Artificial Opening Endoscopic (ICD-10-PCS; principal; 2019-03-04 08:30)
PROC: 0D5L8ZZ Destruction of Transverse Colon, Via Natural or Artificial Opening Endoscopic (ICD-10-PCS; principal; 2019-03-04 08:30)
DX: D50.9 Iron deficiency anemia, unspecified (principal); K92.1 Melena; Q27.30 Arteriovenous malformation, site unspecified; K57.30 Diverticulosis of large intestine without perforation or abscess without bleeding; K64.8 Other hemorrhoids; K64.4 Residual hemorrhoidal skin tags; K44.9 Diaphragmatic hernia without obstruction or gangrene; I10 Essential (primary) hypertension; E78.00 Pure hypercholesterolemia, unspecified; R73.9 Hyperglycemia, unspecified; J44.9 Chronic obstructive pulmonary disease, unspecified; F41.9 Anxiety disorder, unspecified; F17.210 Nicotine dependence, cigarettes, uncomplicated; Z79.899 Other long term (current) drug therapy; Z79.82 Long term (current) use of aspirin
CPT/HCPCS: J2250; J2704; J7120

== ENCOUNTER 2019-07-19 09:34 | Day surgery (SDC) | payer MEDICARE, OTHER ==
[~2019-07-19] VITALS: Ht 157.5 cm; Wt 52.4 kg
[~2019-07-19 09:34] MED LIST changes: +FLUT1DIS5 INH; +METO25ER PO; +NITR.4SL SL; +Ropinirole HCl0.5 MG PO
[2019-07-19] MEDS ORDERED: OXYC5 PO (10:13)
--- NOTE | 2019-07-19 13:30 | NUR ---
Dressing to procedure site clean, dry, intact with no visible drainage, swelling, erythema or bruising noted.BREAST BINDER IN PLACE.REVIEWED DISCHARGE INSTRUCTIONS WITH PT AND HER DAUGHTER DEANNE. PT WAS GIVEN NORCO 5/325 MG 1 PO FOR PAIN. HOWEVER, SHE DECLINED THE RX FOR NORCO HER LIVER ENZYMES HAVE BEEN ELEVATED. PT STATES THAT SHE HAS OXYCODONE FOR PAIN AT HOME. ENCOURAGED PT TO RESUME HOME MEDS INCLUDING BABY ASPIRIN PREVIOUSLY PRESCRIBED. THE RX THAT WAS WRITTERN BY DR. ALCANTARA FOR NORCO WAS SHREDDED. Discharged via wheelchair to private car for ride home.
== END 2019-07-19 13:30 | disposition home or self-care (01) ==
LOC: ORSCMMR 09:34 → ORD 11:00 → ORSCMMR 11:00
PROVIDERS: Surgery
PROC: 0JB60ZX Excision of Chest Subcutaneous Tissue and Fascia, Open Approach, Diagnostic (ICD-10-PCS; principal; 2019-07-19 11:00)
PROC: 0JQ60ZZ Repair Chest Subcutaneous Tissue and Fascia, Open Approach (ICD-10-PCS; principal; 2019-07-19 11:00)
DX: C34.90 Malignant neoplasm of unspecified part of unspecified bronchus or lung (principal); C79.2 Secondary malignant neoplasm of skin; I10 Essential (primary) hypertension; I25.10 Atherosclerotic heart disease of native coronary artery without angina pectoris; I49.9 Cardiac arrhythmia, unspecified; E78.5 Hyperlipidemia, unspecified; K21.9 Gastro-esophageal reflux disease without esophagitis; Z79.899 Other long term (current) drug therapy
CPT/HCPCS: 88305; A9270-GY; J0690; J2704; J3010; J7120

== ENCOUNTER 2019-10-11 14:41 | Emergency (ER) | payer MEDICARE, OTHER ==
[~2019-10-11] VITALS: Ht 157.5 cm; Wt 54.4 kg
[~2019-10-11 14:41] MED LIST changes: +FURO40 PO; -FURO80 PO; +OXYC5 PO
[2019-10-11 16:31] LABS: BASOPHILS ABSOLUTE AUTO 0.02 K/mm3 (0.00-0.23); BASOPHILS PERCENT AUTO 0 % (0-2); EOSINOPHILS PERCENT AUTO 0 % (0-6); Hematocrit 33.8 % (33.0-51.0); IMMATURE GRAN ABSOLUTE AUTO 0.16 K/mm3 (0.00-0.10); IMMATURE GRAN PERCENT AUTO 1 % (0-1); LYMPHOCYTES ABSOLUTE AUTO 0.35 K/mm3 (0.84-5.20); LYMPHOCYTES PERCENT AUTO 3 % (21-46); MONOCYTES ABSOLUTE AUTO 0.51 K/mm3 (0.16-1.47); MONOCYTES PERCENT AUTO 4 % (4-13); Mean Corpuscular HGB 38.7 pg (26.0-34.0); Mean Corpuscular HGB Conc 32.5 g/dL (31.5-36.5); Mean Platelet Volume 10.6 fL (9.1-12.4); NEUTROPHILS ABSOLUTE AUTO 11.45 K/mm3 (1.96-9.15); NEUTROPHILS PERCENT AUTO 92 % (41-73); Platelet Count 161 K/mm3 (150-400); RDW Coefficient Variation 13.8 % (11.7-14.2); RDW Standard Deviation 60.4 fL (35.1-46.3); Red Blood Cell Count 2.84 M/mm3 (3.80-5.20); White Blood Cell Count 12.49 K/mm3 (4.00-11.30)
[2019-10-11 16:32] LABS: Mean Corpuscular Volume 119 fL (80-100)
[2019-10-11 16:53] LABS: Alanine Aminotransfer (ALT/SGP 36 U/L (12-78); Albumin, Blood 2.6 g/dL (3.4-5.0); Albumin/Globulin Ratio 0.8 (0.8-1.8); Alk Phos 164 U/L (50-136); Anion Gap 7 mmol/L (6-16); Aspartate Aminotrans (AST/SGOT 47 U/L (12-37); Bilirubin, Total 0.5 mg/dL (0.1-1.0); Blood Urea Nitrogen 16 mg/dL (8-24); Bun/Creatinine Ratio 20.5 (12.0-20.0); CO2, Blood 26 mmol/L (21-32); Chloride, Blood 100 mmol/L (98-108); Creatinine, Blood 0.78 mg/dL (0.40-1.00); Globulin, Blood 3.3 g/dL (2.2-4.0); Glomerular Filtration Rate >60 (60-); Glucose, Blood 168 mg/dL (70-99); Potassium, Blood 5.8 mmol/L (3.5-5.5); Sodium, Blood 133 mmol/L (136-145); Total Protein, Blood 5.9 g/dL (6.4-8.2)
[2019-10-11 18:17] LABS: Bilirubin, Urine Neg (Neg); Blood, Urine Neg (Neg); Glucose Qualitative, Urine Neg (Neg); Ketones, Urine 1+ (Neg); Leukocyte Esterase, Urine 1+ (Neg); Nitrite, Urine Neg (Neg); Protein, Urine 1+ (Neg); Urobilinogen, Urine 1+ (Normal)
[2019-10-11 18:32] LABS: Appearance, Urine Clear (Clear); Color, Urine Yellow (P-Yellow); Red Blood Cells, Urine Not Seen /hpf (0-2); Squamous Epithelial Cells Few /hpf (Few); White Blood Cells, Urine 0-2 /hpf (0-5)
[2019-10-11 18:33] LABS: Bacteria Few /hpf; Mucus Light (0-Heavy)
== END 2019-10-11 20:14 | disposition home or self-care (01) ==
LOC: ER 14:41
PROVIDERS: Emergency Medicine
DX: E86.0 Dehydration (principal); C7A.1 Malignant poorly differentiated neuroendocrine tumors; J44.9 Chronic obstructive pulmonary disease, unspecified; I25.2 Old myocardial infarction; F41.9 Anxiety disorder, unspecified; M19.90 Unspecified osteoarthritis, unspecified site; F17.200 Nicotine dependence, unspecified, uncomplicated
CPT/HCPCS: 36415; 51701; 80053; 81001; 85025; 87086; 94640; 96360-59; 96361-59; 99284-25; J7030

== ENCOUNTER 2019-10-15 22:22 | Inpatient (IN) | payer MEDICARE, OTHER ==
[~2019-10-15] VITALS: Ht 165.1 cm; Wt 57.2 kg
[2019-10-16 00:04] LABS: BASOPHILS ABSOLUTE AUTO 0.02 K/mm3 (0.00-0.23); BASOPHILS PERCENT AUTO 0 % (0-2); EOSINOPHILS PERCENT AUTO 0 % (0-6); Hematocrit 32.6 % (33.0-51.0); Hemoglobin 11.5 g/dL (11.5-16.0); IMMATURE GRAN ABSOLUTE AUTO 0.12 K/mm3 (0.00-0.10); IMMATURE GRAN PERCENT AUTO 2 % (0-1); LYMPHOCYTES ABSOLUTE AUTO 0.21 K/mm3 (0.84-5.20); LYMPHOCYTES PERCENT AUTO 4 % (21-46); MONOCYTES ABSOLUTE AUTO 0.04 K/mm3 (0.16-1.47); MONOCYTES PERCENT AUTO 1 % (4-13); Mean Corpuscular HGB 39.1 pg (26.0-34.0); Mean Corpuscular HGB Conc 35.3 g/dL (31.5-36.5); Mean Platelet Volume 10.3 fL (9.1-12.4); NEUTROPHILS ABSOLUTE AUTO 5.21 K/mm3 (1.96-9.15); NEUTROPHILS PERCENT AUTO 93 % (41-73); Platelet Count 127 K/mm3 (150-400); RDW Coefficient Variation 13.3 % (11.7-14.2); RDW Standard Deviation 54.7 fL (35.1-46.3); Red Blood Cell Count 2.94 M/mm3 (3.80-5.20)
[2019-10-16 00:09] LABS: Mean Corpuscular Volume 111 fL (80-100)
[2019-10-16 00:22] LABS: Alanine Aminotransfer (ALT/SGP 38 U/L (12-78); Albumin, Blood 2.8 g/dL (3.4-5.0); Albumin/Globulin Ratio 0.8 (0.8-1.8); Alk Phos 168 U/L (50-136); Anion Gap 14 mmol/L (6-16); Aspartate Aminotrans (AST/SGOT 54 U/L (12-37); Bilirubin, Total 0.5 mg/dL (0.1-1.0); Blood Urea Nitrogen 11 mg/dL (8-24); Bun/Creatinine Ratio 21.2 (12.0-20.0); CO2, Blood 29 mmol/L (21-32); Calcium, Blood 9.3 mg/dL (8.5-10.1); Chloride, Blood 86 mmol/L (98-108); Creatinine, Blood 0.52 mg/dL (0.40-1.00); Ethanol (Alcohol), Blood, Med 182 mg/dL; Globulin, Blood 3.4 g/dL (2.2-4.0); Glomerular Filtration Rate >60 (60-); Glucose, Blood 218 mg/dL (70-99); Potassium, Blood 2.8 mmol/L (3.5-5.5); Sodium, Blood 129 mmol/L (136-145); Total Protein, Blood 6.2 g/dL (6.4-8.2)
[2019-10-16] MEDS ORDERED: PRED20 PO (00:26)
[2019-10-16] MEDS ORDERED: Seroquel Xr50 MG PO (00:29)
[2019-10-16 00:43] LABS: Source, Urine Clean Catch
[2019-10-16 00:46] LABS: Bilirubin, Urine Neg (Neg); Blood, Urine Neg (Neg); Glucose Qualitative, Urine 1+ (Neg); Ketones, Urine Neg (Neg); Leukocyte Esterase, Urine 1+ (Neg); Nitrite, Urine Neg (Neg); Protein, Urine Neg (Neg); Urobilinogen, Urine NORM (Normal)
[2019-10-16 00:55] LABS: Appearance, Urine Hazy (Clear); Bacteria Many /hpf; Color, Urine Yellow (P-Yellow); Red Blood Cells, Urine Not Seen /hpf (0-2); Squamous Epithelial Cells Few /hpf (Few)
[2019-10-16 01:50] LABS: Magnesium, Blood 1.9 mg/dL (1.6-2.4); Troponin I 0.031 ng/mL (0.000-0.040)
[2019-10-16] MEDS ORDERED: POTCHL20ER (03:32)
[2019-10-16] MEDS ORDERED: MIRALAX17 GM PO (03:36)
[2019-10-16] MEDS ORDERED: NYST237S MT (03:36)
[2019-10-16] MEDS ORDERED: Abreva2 GM TOP (03:38)
[2019-10-16] MEDS ORDERED: Q-Tussin100 MG/5 M PO (04:00)
--- NOTE | 2019-10-16 05:01 | NUR ---
ADMIT TO UNIT PATIENT ARRIVED FROM ER BY MATY, AND TRANSFERRED SELF WITH STBY ASSIST FROM PCU STAFF TO BEDSIDE COMMODE AND THEN PCU BED. PATIENT IS ALERT AND ORIENTED, IN NO OBVIOUS DISTRESS. PT DENIES PAIN. PATIENT HAS SIGNS OF RECENT REPORTED FALL AT HOME, INCLUDING 2CM BUMP TO RIGHT ORTHODOXY, DARK BRUISE TO LEFT PALM, AND 5CM SKIN TEAR TO RIGHT OUTER FOREARM. SEE SEPARATE NOTE FOR SKIN TEAR DRESSING. DAUGHTER AND CAREGIVER WITH PATIENT IN ROOM. VSS, HR AT 99, O2 SATURATION AT 96% ON 2L NC. WILL CONTINUE TO MONITOR AND PROVIDE CARE, CALL LIGHT W/IN REACH
--- NOTE | 2019-10-16 05:10 | NUR ---
SKIN TEAR A 5CM X 3CM SKIN TEAR TO RIGHT FOREARM, REPORTED RESULT OF FALL AT HOME. SMALL AMT OF SER/SANG DRAINAGE, MILDLY TENDER PER PT. WOUND WAS RINSED W/ NS, PATTED DRY, COVERED WITH OIL-EMULSION FILM, THEN NON-ADHERENT PAD SECURED WITH SMALL STRIPS OF TAPE AND HELD IN PLACE BY STRETCH-STOCKING. PATIENT TOLERATED WELL.
[2019-10-16 12:21] LABS: Hematocrit 30.6 % (33.0-51.0); Hemoglobin 10.6 g/dL (11.5-16.0); Mean Corpuscular HGB 38.7 pg (26.0-34.0); Mean Corpuscular HGB Conc 34.6 g/dL (31.5-36.5); Mean Corpuscular Volume 112 fL (80-100); Mean Platelet Volume 10.9 fL (9.1-12.4); Platelet Count 110 K/mm3 (150-400); RDW Coefficient Variation 13.3 % (11.7-14.2); RDW Standard Deviation 55.2 fL (35.1-46.3); Red Blood Cell Count 2.74 M/mm3 (3.80-5.20); White Blood Cell Count 7.35 K/mm3 (4.00-11.30)
[2019-10-16 12:39] LABS: Alanine Aminotransfer (ALT/SGP 36 U/L (12-78); Albumin, Blood 2.6 g/dL (3.4-5.0); Albumin/Globulin Ratio 0.8 (0.8-1.8); Alk Phos 156 U/L (50-136); Anion Gap 5 mmol/L (6-16); Aspartate Aminotrans (AST/SGOT 55 U/L (12-37); Bilirubin, Total 0.7 mg/dL (0.1-1.0); Blood Urea Nitrogen 9 mg/dL (8-24); Bun/Creatinine Ratio 17.6 (12.0-20.0); CO2, Blood 31 mmol/L (21-32); Calcium, Blood 8.5 mg/dL (8.5-10.1); Chloride, Blood 98 mmol/L (98-108); Creatinine, Blood 0.51 mg/dL (0.40-1.00); Globulin, Blood 3.2 g/dL (2.2-4.0); Glomerular Filtration Rate >60 (60-); Glucose, Blood 148 mg/dL (70-99); Sodium, Blood 134 mmol/L (136-145); Total Protein, Blood 5.8 g/dL (6.4-8.2)
[2019-10-16 12:42] LABS: Potassium, Blood 4.8 mmol/L (3.5-5.5)
--- NOTE | 2019-10-16 16:27 | NUR ---
SHIFT SUMMARY- PT A/OX3 BUT FORGETFUL AT TIMES. PT DENIES ANY COMPLAINTS T/O THE DAY. LS WITH EXP WHEEZES, ON 2L N/C, SOB WITH EXERTION, OCC PRODUCTIVE COUGH. TESSALON GIVEN TWICE TODAY. PT STARTED ON BD PROTOCOL. TELE NSR AT 95. 2+ BLE EDEMA. PT UP TO BSC WITH 1 ASSIST WITH FWW. PT EVAL COMPLETED RECOMMENDING HOME WITH HH. CIWA STABLE, BANANA BAG GIVEN. PT HAS POOR ORAL INTAKE, FAMILY REPORTS THAT IS TYPICAL FOR HER. HEMATOMA TO RIGHT FORHEAD AND SKIN TEAR TO RFA WITH DRESSING C/D/I FROM FALL AT HOME. NO OTHER ACUTE CHANGES THIS SHIFT.
[2019-10-17 03:40] LABS: BASOPHILS ABSOLUTE AUTO 0.01 K/mm3 (0.00-0.23); BASOPHILS PERCENT AUTO 0 % (0-2); EOSINOPHILS PERCENT AUTO 0 % (0-6); Hematocrit 26.7 % (33.0-51.0); Hemoglobin 9.1 g/dL (11.5-16.0); IMMATURE GRAN ABSOLUTE AUTO 0.04 K/mm3 (0.00-0.10); IMMATURE GRAN PERCENT AUTO 1 % (0-1); LYMPHOCYTES ABSOLUTE AUTO 1.04 K/mm3 (0.84-5.20); LYMPHOCYTES PERCENT AUTO 23 % (21-46); MONOCYTES ABSOLUTE AUTO 0.19 K/mm3 (0.16-1.47); MONOCYTES PERCENT AUTO 4 % (4-13); Mean Corpuscular HGB 39.1 pg (26.0-34.0); Mean Corpuscular HGB Conc 34.1 g/dL (31.5-36.5); Mean Platelet Volume 10.3 fL (9.1-12.4); NEUTROPHILS ABSOLUTE AUTO 3.25 K/mm3 (1.96-9.15); NEUTROPHILS PERCENT AUTO 72 % (41-73); Platelet Count 88 K/mm3 (150-400); RDW Coefficient Variation 13.5 % (11.7-14.2); RDW Standard Deviation 57.1 fL (35.1-46.3); Red Blood Cell Count 2.33 M/mm3 (3.80-5.20); White Blood Cell Count 4.53 K/mm3 (4.00-11.30)
[2019-10-17 03:41] LABS: Mean Corpuscular Volume 115 fL (80-100)
[2019-10-17 03:54] LABS: Albumin, Blood 2.3 g/dL (3.4-5.0); Anion Gap 5 mmol/L (6-16); Blood Urea Nitrogen 7 mg/dL (8-24); Bun/Creatinine Ratio 15.2 (12.0-20.0); CO2, Blood 30 mmol/L (21-32); Chloride, Blood 101 mmol/L (98-108); Creatinine, Blood 0.46 mg/dL (0.40-1.00); Glomerular Filtration Rate >60 (60-); Glucose, Blood 99 mg/dL (70-99); Magnesium, Blood 1.7 mg/dL (1.6-2.4); Phosphorus, Blood 2.2 mg/dL (2.5-4.9); Potassium, Blood 3.8 mmol/L (3.5-5.5); Sodium, Blood 136 mmol/L (136-145)
--- NOTE | 2019-10-17 05:22 | NUR ---
Shift Summary CIWA stable this shift, VSS, pt alert and oriented but slow to respond at times. Pt able to take pills whole but does better with applesauce or pudding than she does with water. Pt in no apparent sign of distress. Infusing abx and normal saline as per orders. Pt able to reposition self in bed. Up to bsc with one and with FWW. Family at bedside at begining of shift, home for the night. Pt able to sleep approx 8 hrs this shift. No acute concerns. No changes to telemetry, pt remains SR in 90's. See shift assessment for detailed systems assessment. no acute changes from shift assessment. Will continue to monitor.
--- NOTE | 2019-10-17 07:40 | NUR ---
pt laying in bed awake a/ox3, cooperative with care, follows commands well,; denies any complaints at this time, lungs have exp wheezing t/o, resp even and unlabored on r/a, denies cough, hrr, tele in place running sr per monitor, see strip, trace edema noted to b/l le, ppp+1, cap refill <3sec, vs stable, afebrile, iv site is 22 to rw, s.l. at this time, btx4, abd flat soft nontender, voids without diff, skin has multiple bruisings from a fall at home, robyn sneed, call light in reach.
--- NOTE | 2019-10-17 11:35 | NUR ---
Spiritual care visit conducted. Patient is sitting on a chair and alert. Patient imediately tells me that she hopes to go home today. Patient shares that she is not amish and finds strength from her family. Patient states that she she has no real needs at this time except to keep feeling better. Patient voices appreciation for the visit.
[2019-10-17] MEDS ORDERED: K-Phos Origina500 MG PO (12:30)
[2019-10-17] MEDS ORDERED: Vsl#3 Capsule1 EACH PO (13:39)
[2019-10-17] MEDS ORDERED: LEVOFLOXACIN750 MG PO (13:40)
[2019-10-17] MEDS ORDERED: FURO40 PO (13:46)
--- NOTE | 2019-10-17 13:52 | NUR ---
pt has been discharged to home, anxious to leave. iv removed intact, daughter here to take her home. will leave via wheelchair. called new meds to [facility] in [place]. went over instructions with them, they verbalized understanding. have all belongings.
--- NOTE | 2019-10-17 14:13 | NUR ---
pt left via wheelchair with roading engineer in attendence.
== END 2019-10-17 14:13 | disposition home or self-care (01) | DRG 690 ==
LOC: ER 22:22 → PCU 22:23
PROVIDERS: Emergency Medicine; Internal Medicine; Physician Assistant; ADMIT Internal Medicine
DX: N39.0 Urinary tract infection, site not specified (principal); E87.1 Hypo-osmolality and hyponatremia; I50.32 Chronic diastolic (congestive) heart failure; C7A.8 Other malignant neuroendocrine tumors; B95.2 Enterococcus as the cause of diseases classified elsewhere; E86.0 Dehydration; W19.XXXA Unspecified fall, initial encounter; S00.03XA Contusion of scalp, initial encounter; S51.811A Laceration without foreign body of right forearm, initial encounter; E87.6 Hypokalemia; D69.6 Thrombocytopenia, unspecified; J44.9 Chronic obstructive pulmonary disease, unspecified; F41.9 Anxiety disorder, unspecified; I11.0 Hypertensive heart disease with heart failure; F10.10 Alcohol abuse, uncomplicated; F17.210 Nicotine dependence, cigarettes, uncomplicated
CPT/HCPCS: 36415; 70450; 71045; 72125; 80053; 80069; 81001; 82947; 83605; 83735; 83880; 84484; 85025; 85027; 87040; 87077; 87086; 87186; 93005; 93010; 94640; 94760; 96361; 96365; 96372; 96375; 97110; 97116; 97162; 97165; 97535; 99285-25; G0378; G0480; J0696; J1650; J3411; J3475; J3480; J7030; J7042; J7060; J7120; J7512; P9612